=== PATIENT | male | born 1980 | race African-American/Black ===

== ENCOUNTER 2021-10-02 12:33 | Emergency (ER) | payer SELFPAY ==
[~2021-10-02] VITALS: Ht 177.8 cm; Wt 100.0 kg
[2021-10-02] MEDS ORDERED: CYCLOBENZAPRINE 10MG TABLET PO ONE (13:30)
[2021-10-02] MEDS ORDERED: IBUP-2030 MT (13:30)
[2021-10-02] MEDS ORDERED: KETOROLAC 30MG/ML VIAL IM ONE (13:30)
[2021-10-02] MEDS ORDERED: CYCL5TAB MT (13:31)
[2021-10-02 13:44] VITALS: BP 127/85
== END 2021-10-02 13:45 | disposition home or self-care (01) ==
LOC: ER 12:45
DX: S39.012A Strain of muscle, fascia and tendon of lower back, initial encounter (principal); M25.561 Pain in right knee; X58.XXXA Exposure to other specified factors, initial encounter; Y93.67 Activity, basketball; Y92.89 Other specified places as the place of occurrence of the external cause
CPT/HCPCS: 96372; 99283; J1885

== ENCOUNTER 2022-11-09 12:00 | Emergency (ER) | payer SELFPAY ==
[~2022-11-09] VITALS: Ht 180.3 cm; Wt 95.0 kg
[~2022-11-09 12:00] MED LIST: CYCL5TAB MT; IBUP-2030 MT
[2022-11-09 12:13] VITALS: BP 116/79
== END 2022-11-09 21:02 | disposition left against medical advice (07) ==
LOC: ER 12:00
DX: Z53.21 Procedure and treatment not carried out due to patient leaving prior to being seen by health care provider (principal)